=== PATIENT | male | born 1965 | race African-American/Black ===

== ENCOUNTER 2020-12-11 11:09 | Emergency (ER) | payer MEDICAID ==
[~2020-12-11] VITALS: Ht 182.9 cm; Wt 137.0 kg
[2020-12-11] MEDS ORDERED: IBUPROFEN 600MG TABLET PO ONE (11:30)
[2020-12-11] MEDS ORDERED: T3 PO (13:39)
[2020-12-11] MEDS ORDERED: IBUP-2030 PO ×2 (13:39→13:41)
[2020-12-11 13:40] VITALS: BP 156/90
== END 2020-12-11 15:36 | disposition home or self-care (01) ==
LOC: ER 11:19
DX: S22.32XA Fracture of one rib, left side, initial encounter for closed fracture (principal); I10 Essential (primary) hypertension; M19.90 Unspecified osteoarthritis, unspecified site; W01.0XXA Fall on same level from slipping, tripping and stumbling without subsequent striking against object, initial encounter; Y93.89 Activity, other specified; Y92.9 Unspecified place or not applicable
CPT/HCPCS: 71101; 99283; Z7610; A4315

== ENCOUNTER 2021-01-06 05:33 | Emergency (ER) | payer MEDICAID ==
[~2021-01-06] VITALS: Ht 188 cm; Wt 147.0 kg
[~2021-01-06 05:33] MED LIST: IBUP-2030 PO; T3 PO
[2021-01-06] MEDS ORDERED: ONDANSETRON HCL 4MG/2ML INJ IV STA (06:17)
[2021-01-06] MEDS ORDERED: MORPHINE SULFATE 4 MG/ML CPJ (NOT FOR IM USE) IV STA (06:17)
[2021-01-06 06:38] LABS: HEMATOCRIT. 43.3 % (42.0-52.0); HEMOGLOBIN. 14.7 g/dL (14.0-18.0); MEAN CORPUSCULAR HEMOGLOBIN 33.3 pg (28.0-32.0); MEAN CORPUSCULAR VOLUME 98.1 fL (80.0-94.0); MEAN PLATELET VOLUME 9.9 fl (7.4-10.4); PLATELET 258 x1000/uL (130-400); RED BLOOD CELL COUNT 4.41 mill/uL (4.7-6.1); RED CELL DISTRIBUTION WIDTH 12.7 % (11.6-14.6)
[2021-01-06 06:45] LABS: CHLORIDE 97 mEq/L (98-107)
[2021-01-06 07:38] LABS: PLATELET ESTIMATE NORMAL
[2021-01-06 08:57] LABS: CLARITY URINE CLEAR (CLEAR); COLOR URINE YELLOW (YELLOW); KETONES URINE NEGATIVE (NEGATIVE); LEUKOCYTE ESTERASE URINE NEGATIVE (NEGATIVE); NITRITE URINE NEGATIVE (NEGATIVE); OCCULT BLOOD URINE NEGATIVE (NEGATIVE); PROTEIN URINE NEGATIVE (NEGATIVE); SPECIFIC GRAVITY URINE 1.008 (1.005-1.030); UROBILINOGEN URINE 0.2 E.U./dL (0.2-1.0)
[2021-01-06] MEDS ORDERED: TOPUD PO (11:46)
[2021-01-06 11:58] VITALS: BP 137/88
== END 2021-01-06 11:58 | disposition home or self-care (01) ==
LOC: ER 05:50
DX: K80.20 Calculus of gallbladder without cholecystitis without obstruction (principal); I10 Essential (primary) hypertension; M19.90 Unspecified osteoarthritis, unspecified site; F12.10 Cannabis abuse, uncomplicated
CPT/HCPCS: 36415; 74176; 76705; 80053; 81003; 83690; 85025; 85610; 93005; 96374; 96375; 99285; J2270; J2405

== ENCOUNTER 2021-05-12 04:57 | Inpatient (IN) | payer MEDICAID ==
[~2021-05-12] VITALS: Ht 190.5 cm; Wt 113.4 kg
[~2021-05-12 04:57] MED LIST changes: +TOPUD PO
[2021-05-12 05:58] LABS: BASOPHILS % 0.6 % (0.0-2.0); EOSINOPHILS % 1.6 % (0.0-5.0); HEMATOCRIT. 42.2 % (42.0-52.0); LYMPHOCYTES % 21.3 % (20.0-50.0); MEAN CORPUSCULAR VOLUME 98.4 fL (80.0-94.0); MEAN PLATELET VOLUME 8.5 fl (7.4-10.4); MONOCYTES % 6.8 % (2.0-8.0); NEUTROPHILS % 69.7 % (40.0-76.0); PLATELET 215 x1000/uL (130-400); RED BLOOD CELL COUNT 4.29 mill/uL (4.7-6.1); RED CELL DISTRIBUTION WIDTH 14.1 % (11.6-14.6)
[2021-05-12 06:08] LABS: PROTHROMBIN TIME 10.4 sec (9.6-11.0)
[2021-05-12 06:29] LABS: CHLORIDE 102 mEq/L (98-107)
[2021-05-12] MEDS ORDERED: POTASSIUM CHLORIDE 20MEQ TABLET SR PO ONE (07:30)
[2021-05-12] MEDS ORDERED: DOCUSATE SODIUM 100MG CAPSULE PO PRN (10:00)
[2021-05-12] MEDS ORDERED: POTASSIUM CHLORIDE 20MEQ TABLET SR PO SCH (10:00)
[2021-05-12] MEDS ORDERED: MAGNESIUM/ALUMINUM HYDROXIDE/SIMETHICONE 30ML UDC PO PRN (10:00)
[2021-05-12] MEDS ORDERED: ZOLPIDEM TARTRATE 5MG TABLET PO PRN (10:00)
[2021-05-12] MEDS ORDERED: CLONIDINE 0.1MG TABLET PO PRN (10:00)
[2021-05-12] MEDS ORDERED: NITROGLYCERIN 0.4MG TABLET SL SL PRN (10:00)
[2021-05-12] MEDS ORDERED: ACETAMINOPHEN 325MG TABLET PO PRN ×2 (10:00)
[2021-05-12] MEDS ORDERED: ONDANSETRON HCL 4MG/2ML INJ IV PRN (10:00)
[2021-05-12] MEDS ORDERED: GUAIFENESIN 200MG/10ML SUGAR FREE UDC PO PRN (10:00)
[2021-05-12] MEDS ORDERED: KETOROLAC 15MG/ML VIAL IV PRN (10:00)
[2021-05-12] MEDS ORDERED: KCL 20MEQ/100ML PREMIX 100 ML IV SCH (11:00)
[2021-05-12 12:00] VITALS: BP 145/90
[2021-05-12 12:31] VITALS: BP 140/85
[2021-05-12] MEDS: DILTIAZEM HCL 60MG TABLET PO SCH ×2 (14:28→17:42)
[2021-05-12 16:00] VITALS: BP 150/96
[2021-05-12 16:00] LABS: FOLIC ACID (FOLATE) SERUM 2.7 ng/mL (>5.38)
[2021-05-12 16:32] LABS: BASOPHILS % 0.3 % (0.0-2.0); EOSINOPHILS % 0.3 % (0.0-5.0); HEMATOCRIT. 38.7 % (42.0-52.0); HEMOGLOBIN. 13.7 g/dL (14.0-18.0); LYMPHOCYTES % 24.2 % (20.0-50.0); MEAN CORPUSCULAR VOLUME 98.8 fL (80.0-94.0); MEAN PLATELET VOLUME 8.5 fl (7.4-10.4); MONOCYTES % 9.5 % (2.0-8.0); NEUTROPHILS % 65.7 % (40.0-76.0); PLATELET 197 x1000/uL (130-400); RED BLOOD CELL COUNT 3.92 mill/uL (4.7-6.1); RED CELL DISTRIBUTION WIDTH 13.9 % (11.6-14.6)
[2021-05-12 16:44] LABS: CREATINE KINASE 136 IU/L (39-308)
[2021-05-12 16:46] LABS: CREATINE KINASE MB FRACTION 3.2 ng/mL (0.5-3.6)
[2021-05-12 20:00] VITALS: BP 135/83
[2021-05-12 23:40] LABS: CREATINE KINASE 126 IU/L (39-308); CREATINE KINASE MB FRACTION 2.1 ng/mL (0.5-3.6)
[2021-05-13] VITALS (7 sets, daily range): BP systolic 134–154; BP diastolic 84–98
[2021-05-13] MEDS: DILTIAZEM HCL 60MG TABLET PO SCH ×4 (00:43→18:35)
[2021-05-13 06:29] LABS: BASOPHILS % 0.4 % (0.0-2.0); EOSINOPHILS % 1.1 % (0.0-5.0); HEMATOCRIT. 40.9 % (42.0-52.0); HEMOGLOBIN. 14.2 g/dL (14.0-18.0); LYMPHOCYTES % 32.6 % (20.0-50.0); MEAN CORPUSCULAR HEMOGLOBIN 34.7 pg (28.0-32.0); MEAN CORPUSCULAR VOLUME 99.8 fL (80.0-94.0); MEAN PLATELET VOLUME 8.8 fl (7.4-10.4); MONOCYTES % 8.3 % (2.0-8.0); NEUTROPHILS % 57.6 % (40.0-76.0); PLATELET 183 x1000/uL (130-400)
[2021-05-13 06:42] LABS: CHLORIDE 102 mEq/L (98-107)
[2021-05-13 06:50] LABS: PHOSPHORUS 2.1 mg/dL (2.5-4.9)
[2021-05-13] MEDS: THIAMINE HCL 100MG TABLET PO SCH (08:47)
[2021-05-13] MEDS: LACTOBACILLUS GG CAPSULE PO SCH (08:47)
[2021-05-13] MEDS: FOLIC ACID 1MG TABLET PO SCH (08:47)
[2021-05-13] MEDS: MULTIVITAMINS,THER W-MINERALS TABLET PO SCH (08:47)
[2021-05-13] MEDS: PANTOPRAZOLE SODIUM 40 MG/VIAL IV SCH (08:47)
[2021-05-13] MEDS ORDERED: POTASSIUM CHLORIDE 20MEQ TABLET SR PO NR (09:15)
[2021-05-13] MEDS ORDERED: POTASSIUM CHLORIDE 20MEQ/PACKET PO NR (10:30)
[2021-05-13] MEDS ORDERED: POTASSIUM CHLORIDE INJ 40 MEQ in DEXT 5% WATER 250 ML IV SCH (11:00)
[2021-05-13] MEDS ORDERED: MAGNESIUM 2 G PREMIX 50 ML IV NR (12:00)
[2021-05-13] MEDS ORDERED: POTASSIUM PHOS,M-BASIC-D-BASIC 30 MMOL in DEXT 5% WATER 500 ML IV NR (15:00)
[2021-05-14] MEDS: DILTIAZEM HCL 60MG TABLET PO SCH ×2 (00:04→06:21)
[2021-05-14 00:12] VITALS: BP 136/87
[2021-05-14 06:01] LABS: CHLORIDE 105 mEq/L (98-107)
[2021-05-14 06:07] LABS: BASOPHILS % 0.4 % (0.0-2.0); EOSINOPHILS % 1.4 % (0.0-5.0); HEMATOCRIT. 41.7 % (42.0-52.0); HEMOGLOBIN. 14.6 g/dL (14.0-18.0); LYMPHOCYTES % 26.8 % (20.0-50.0); MEAN CORPUSCULAR HEMOGLOBIN 35.4 pg (28.0-32.0); MEAN CORPUSCULAR VOLUME 101.3 fL (80.0-94.0); MEAN PLATELET VOLUME 8.9 fl (7.4-10.4); MONOCYTES % 8.8 % (2.0-8.0); NEUTROPHILS % 62.6 % (40.0-76.0); PLATELET 189 x1000/uL (130-400); RED BLOOD CELL COUNT 4.12 mill/uL (4.7-6.1); RED CELL DISTRIBUTION WIDTH 14.2 % (11.6-14.6)
[2021-05-14 06:17] LABS: PHOSPHORUS 2.6 mg/dL (2.5-4.9)
[2021-05-14 08:00] VITALS: BP 146/88
[2021-05-14] MEDS: THIAMINE HCL 100MG TABLET PO SCH (09:50)
[2021-05-14] MEDS: LACTOBACILLUS GG CAPSULE PO SCH (09:50)
[2021-05-14] MEDS: PANTOPRAZOLE SODIUM 40 MG/VIAL IV SCH (09:51)
[2021-05-14] MEDS: MULTIVITAMINS,THER W-MINERALS TABLET PO SCH (09:51)
[2021-05-14] MEDS: FOLIC ACID 1MG TABLET PO SCH (09:51)
[2021-05-14] MEDS ORDERED: POTASSIUM CHLORIDE 20MEQ/PACKET PO NR (10:30)
[2021-05-14 11:08] VITALS: BP 146/88
== END 2021-05-14 12:40 | disposition home or self-care (01) | DRG 254 ==
LOC: ER 04:57 → 8WST 09:12 → EDBEDREQTM 09:17 → EDBEDREQ 09:17 → ENRESERV 10:55
PROVIDERS: ADMIT Internal Medicine; ATTEND Internal Medicine
DX: K64.4 Residual hemorrhoidal skin tags (principal); E44.1 Mild protein-calorie malnutrition; E87.6 Hypokalemia; F10.10 Alcohol abuse, uncomplicated; I10 Essential (primary) hypertension; K64.5 Perianal venous thrombosis; R19.7 Diarrhea, unspecified; M06.9 Rheumatoid arthritis, unspecified; Z80.9 Family history of malignant neoplasm, unspecified; Z71.41 Alcohol abuse counseling and surveillance of alcoholic; Z68.31 Body mass index [BMI] 31.0-31.9, adult
CPT/HCPCS: 36415; 71045; 80053; 80320; 82550; 82553; 82607; 82746; 83540; 83550; 83735; 84100; 84132; 84484; 85025; 86850; 86900; 93970; 99285; C9113; J3475; J3480; J3490; J7060; G0480